=== PATIENT | male | born 1975 | race Caucasian/White ===

== ENCOUNTER 2020-08-06 06:11 | Day surgery (SDC) | payer OTHER ==
[~2020-08-06] VITALS: Ht 185.4 cm; Wt 99.1 kg
[2020-08-06] VITALS (7 sets, daily range): BP systolic 116–131; BP diastolic 74–90; PULSE 62–83; TEMP 97.4–98.6
[2020-08-06] MEDS ORDERED: ULTRAM 50MG TAB50 MG PO (09:41)
--- NOTE | 2020-08-06 10:13 | NUR ---
Patient returns to room 7 per cart from PACU accompanied by Faviola WAYNE and is awake and alert. IV fluids infusing and site is free of redness or swelling. Exofin surgical glue covering abdominal incisions x3. Wound edges well approximated. Siderails up x2 and call light in reach. Temp 97.8 and room air sats 96%. Denies pain or nausea at present time. Allowed to rest.
--- NOTE | 2020-08-06 10:28 | NUR ---
Patient is sipping on black coffee and taking ice chips.
--- NOTE | 2020-08-06 10:43 | NUR ---
Eating applesauce and continues to deny nausea.
--- NOTE | 2020-08-06 10:58 | NUR ---
States that the incisions are becoming sore and uncomfortable. Rates pain at 4-5/10.
--- NOTE | 2020-08-06 11:00 | NUR ---
Medicated with Ultram 50mg po for complaints of incisional pain.
--- NOTE | 2020-08-06 11:13 | NUR ---
Resting with eyes closed and not disturbed.
--- NOTE | 2020-08-06 11:35 | NUR ---
Assisted up to the bathroom and voids.
--- NOTE | 2020-08-06 11:45 | NUR ---
IV discontinued and site is free of redness. Dresses self.
--- NOTE | 2020-08-06 11:53 | NUR ---
Dismissal instructions given and voices understanding of home cares.
--- NOTE | 2020-08-06 12:00 | NUR ---
Patient dismissed to home driven by spouse and taken to the front door per wheelchair and assisted into vehicle by this RN and dismissal instructions are in hand.
== END 2020-08-06 12:00 | disposition home or self-care (01) ==
LOC: SDCO 06:11
DX: K40.90 Unilateral inguinal hernia, without obstruction or gangrene, not specified as recurrent (principal)
CPT/HCPCS: C1781; J0690; J1885; J2405; J2704; J3010; J7120